=== PATIENT | male | born 1955 | race Two or more races ===

== ENCOUNTER 2019-07-21 08:11 | Day surgery (SDC) | payer BC ==
[2019-07-21] MEDS ORDERED: PROPOFOL 10 MG/ML VIAL IV ONE (08:12)
[2019-07-21] MEDS ORDERED: LIDOCAINE 2% MDV (20MG/ML) 20ML VIAL IV ONE (08:12)
[2019-07-21] MEDS ORDERED: FENTANYL PF 100MCG/2ML VIAL IV ONE (08:12)
--- NOTE | 2019-07-26 10:41 | Operative Note ---
SURGEON: Bonnie Ward MD OPERATION: ESOPHAGOGASTRODUODENOSCOPY. INDICATIONS: This is a 64-year-old male who has had intermittent episodes of choking sensation with or without food who has had long-term history of gastroesophageal reflux disease and presented for esophagogastroduodenoscopy. POSTOPERATIVE DIAGNOSIS: Normal esophagus, stomach, and duodenum with no obstruction or any evidence of any stricture. ANESTHESIA: Sedation is per Anesthesia. Pulse oximetry was monitored throughout the procedure to maintain O2 saturation of 90% or greater. Supplemental oxygen was administered via nasal cannula. Cardiac and vital signs were monitored throughout the duration of the procedure, and they were stable. The procedure of esophagogastroduodenoscopy and risks and benefits of the procedure, including the risk of bleeding and perforation, among others, were explained to the patient who voiced understanding and agreed to have the procedure done. Physical examination was performed, and the patient was found stable for sedation. PROCEDURE: The patient was placed in the left lateral position. Sedation was initiated. A plastic bite block was inserted into the oral cavity. The Olympus [id number] gastroscope was introduced into the oral cavity and advanced to the proximal esophagus without difficulty. The esophageal mucosa was carefully examined upon introduction of the gastroscope. The proximal and mid and distal esophageal mucosa appeared normal. The gastroscope was then advanced into the stomach, and surveillance of the stomach revealed normal gastric fundus, body, and antrum with no ulcers or any strictures noted. The gastroscope was then advanced to the descending duodenum without difficulty. The duodenal bulb and descending duodenum appeared normal. The gastroscope was then withdrawn into the stomach and retroflexion was performed. There were no other lesions noted. The gastroscope was then straightened and withdrawn while carefully examining the gastric and esophageal mucosa. No other lesions noted. He tolerated the procedure well without any immediate complications. The patient remained with stable vital signs and was transferred to the recovery room. RECOMMENDATIONS: 1. I will obtain swallow evaluation. 2. I will see him back in the office as needed. Thank you for allowing me to participate in the care of your patient. ADRIAN
== END 2019-07-21 10:00 | disposition home or self-care (01) ==
LOC: HOP 08:11
PROVIDERS: ATTEND Internal Medicine Gastroenterology
DX: K21.9 Gastro-esophageal reflux disease without esophagitis (principal); R13.10 Dysphagia, unspecified; E11.9 Type 2 diabetes mellitus without complications; E78.00 Pure hypercholesterolemia, unspecified